=== PATIENT | male | born 1985 | race Caucasian/White ===

== ENCOUNTER 2018-07-21 16:30 | Emergency (ER) | payer OTHER | END 2018-07-21 18:46 | disposition home or self-care (01) | LOC: FTE 16:30 | DX: S82.832A Other fracture of upper and lower end of left fibula, initial encounter for closed fracture (principal); W10.9XXA Fall (on) (from) unspecified stairs and steps, initial encounter; Y92.9 Unspecified place or not applicable | CPT/HCPCS: 99282 ==